=== PATIENT | male | born 1970 | race Caucasian/White ===

== ENCOUNTER 2022-10-28 12:58 | Emergency (ER) | payer BC ==
[2022-10-28 14:14] LABS: CORONAVIRUS COVID-19 NAA NEGATIVE (NEGATIVE); INFLUENZA A NAA NEGATIVE (NEGATIVE); INFLUENZA B NAA NEGATIVE (NEGATIVE); RESPIRATORY SYNCYTIAL VIR NAA NEGATIVE (NEGATIVE)
[2022-10-28 15:14] LABS: CARBON DIOXIDE,CO2 24.9 mmol/L (21.0-32.0); POTASSIUM,K 3.9 mmol/L (3.5-5.1)
== END 2022-10-28 16:54 | disposition home or self-care (01) ==
LOC: MW.ED 12:58
DX: R50.9 Fever, unspecified (principal); I10 Essential (primary) hypertension; Z20.822 Contact with and (suspected) exposure to COVID-19; Z79.899 Other long term (current) drug therapy
CPT/HCPCS: 0241U; 36415; 71045; 80053; 81001; 83605; 83735; 84443; 84484; 85025; 85652; 86308; 87040; 93005; 99284; 93010; 99283

== ENCOUNTER 2022-10-30 10:15 | Emergency (ER) | payer BC ==
[2022-10-30] MEDS ORDERED: Morphine 4 MG/ML Syringe IVPUSH ONE (10:56)
[2022-10-30] MEDS ORDERED: Acetaminophen 500 MG Tab PO ONE (10:56)
[2022-10-30] MEDS ORDERED: Sodium Chloride 0.9% 1,000 ML IV ONE (10:56)
[2022-10-30] MEDS ORDERED: Piperacillin/Tazobactam 4.5 GM in Sodium Chloride 0.9% 100 ML IV ONE (10:56)
[2022-10-30] MEDS ORDERED: Ketorolac 30 MG/ML SDV IVPUSH ONE (10:56)
[2022-10-30 11:52] LABS: CORONAVIRUS COVID-19 NAA NEGATIVE (NEGATIVE); INFLUENZA A NAA NEGATIVE (NEGATIVE); INFLUENZA B NAA NEGATIVE (NEGATIVE)
[2022-10-30 12:01] LABS: CARBON DIOXIDE,CO2 29.8 mmol/L (21.0-32.0); POTASSIUM,K 4.8 mmol/L (3.5-5.1)
== END 2022-10-30 13:29 | disposition home or self-care (01) ==
LOC: MW.ED 10:15
DX: N12 Tubulo-interstitial nephritis, not specified as acute or chronic (principal); Z20.822 Contact with and (suspected) exposure to COVID-19
CPT/HCPCS: 0240U; 36415; 71045; 74176; 80053; 81001; 83605; 83690; 83735; 84484; 85025; 85610; 85652; 85730; 86140; 87040; 87154; 96365; 96375; 99284; A9270; J1885; J2270; J2543; J7030; J7050

== ENCOUNTER 2022-10-31 13:42 | Inpatient (IN) | payer BC ==
[2022-10-31] MEDS ORDERED: Ondansetron 4 MG/2 ML SDV IVPUSH ONE (14:05)
[2022-10-31] MEDS ORDERED: Sodium Chloride 0.9% 1,000 ML IV ONE ×2 (14:05→16:00)
[2022-10-31] MEDS ORDERED: Morphine 4 MG/ML Syringe IVPUSH ONE (14:05)
[2022-10-31] MEDS ORDERED: Piperacillin/Tazobactam 3.375 GM in Sodium Chloride 0.9% 50 ML IV ONE (14:05)
[2022-10-31 15:07] LABS: CARBON DIOXIDE,CO2 28.9 mmol/L (21.0-32.0); POTASSIUM,K 4.5 mmol/L (3.5-5.1)
[2022-10-31] MEDS ORDERED: Ondansetron 4 MG/2 ML SDV IVPUSH PRN (15:32)
[2022-10-31] MEDS ORDERED: Sodium Chloride 0.9% 2.5 ML Syringe FLUSH PRN (15:32)
[2022-10-31] MEDS ORDERED: Sodium Chloride 0.9% 10 ML Syringe FLUSH PRN (15:32)
[2022-10-31] MEDS ORDERED: Ketorolac 30 MG/ML SDV IVPUSH ONE (16:00)
[2022-10-31] MEDS: Enoxaparin 40 MG/0.4 ML Syringe SUBCUT SCH (17:01)
[2022-10-31] MEDS: Piperacillin/Tazobactam 3.375 GM in Sodium Chloride 0.9% 50 ML IV SCH (19:59)
[2022-10-31] MEDS: Morphine 4 MG/ML Syringe IVPUSH PRN (20:40)
[2022-10-31] MEDS: oxyCODONE 5 MG Tab PO PRN (22:32)
[2022-10-31] MEDS: Acetaminophen 325 MG Tab PO PRN (23:58)
[2022-11-01] MEDS: Piperacillin/Tazobactam 3.375 GM in Sodium Chloride 0.9% 50 ML IV SCH ×4 (01:41→20:07)
[2022-11-01] MEDS: Morphine 4 MG/ML Syringe IVPUSH PRN ×2 (04:33→20:06)
[2022-11-01 06:19] LABS: CARBON DIOXIDE,CO2 26.6 mmol/L (21.0-32.0); POTASSIUM,K 4.4 mmol/L (3.5-5.1)
[2022-11-01] MEDS ORDERED: VANCOmycin 2 GM/400 ML 2 GM in Premix Bag 1 BAG IV ONE (06:30)
[2022-11-01] MEDS: Acetaminophen 325 MG Tab PO PRN ×2 (06:33→13:42)
[2022-11-01] MEDS: oxyCODONE 5 MG Tab PO PRN ×2 (07:21→22:29)
[2022-11-01] MEDS: Ketorolac 30 MG/ML SDV IVPUSH PRN ×2 (09:14→15:05)
[2022-11-01] MEDS: Enoxaparin 40 MG/0.4 ML Syringe SUBCUT SCH (17:00)
[2022-11-02] MEDS: Morphine 4 MG/ML Syringe IVPUSH PRN ×2 (00:18→08:49)
[2022-11-02] MEDS: Piperacillin/Tazobactam 3.375 GM in Sodium Chloride 0.9% 50 ML IV SCH ×4 (01:23→19:46)
[2022-11-02] MEDS: Acetaminophen 325 MG Tab PO PRN ×3 (01:23→19:44)
[2022-11-02] MEDS: Ketorolac 30 MG/ML SDV IVPUSH PRN (03:56)
[2022-11-02 06:16] LABS: CARBON DIOXIDE,CO2 27.9 mmol/L (21.0-32.0); POTASSIUM,K 4.4 mmol/L (3.5-5.1)
[2022-11-02] MEDS: oxyCODONE 5 MG Tab PO PRN (12:06)
[2022-11-02] MEDS: Enoxaparin 40 MG/0.4 ML Syringe SUBCUT SCH (15:37)
[2022-11-02] MEDS: Lisinopril 10 MG Tab PO SCH (20:48)
[2022-11-02] MEDS: Ibuprofen 400 MG Tab PO PRN (22:49)
[2022-11-03] MEDS: Piperacillin/Tazobactam 3.375 GM in Sodium Chloride 0.9% 50 ML IV SCH ×4 (01:55→20:00)
[2022-11-03 06:14] LABS: CARBON DIOXIDE,CO2 25.3 mmol/L (21.0-32.0); POTASSIUM,K 3.8 mmol/L (3.5-5.1)
[2022-11-03] MEDS: Ibuprofen 400 MG Tab PO PRN ×2 (07:43→16:26)
[2022-11-03] MEDS: Enoxaparin 40 MG/0.4 ML Syringe SUBCUT SCH (16:26)
[2022-11-03] MEDS: Acetaminophen 325 MG Tab PO PRN (20:00)
[2022-11-03] MEDS: Lisinopril 10 MG Tab PO SCH (20:00)
[2022-11-04] MEDS: Piperacillin/Tazobactam 3.375 GM in Sodium Chloride 0.9% 50 ML IV SCH ×2 (01:03→07:25)
[2022-11-04] MEDS: Ibuprofen 400 MG Tab PO PRN (01:59)
[2022-11-04 06:11] LABS: CARBON DIOXIDE,CO2 24.8 mmol/L (21.0-32.0); POTASSIUM,K 3.9 mmol/L (3.5-5.1)
[2022-11-04] MEDS ORDERED: VANCOmycin 1.5 GM/300 ML 1.5 GM in Premix Bag 1 BAG IV SCH (20:00)
== END 2022-11-04 13:50 | disposition home or self-care (01) | DRG 463 ==
LOC: MW.ED 13:42 → MW.MS 15:29
PROVIDERS: ADMIT Internal Medicine; ATTEND Internal Medicine
DX: N12 Tubulo-interstitial nephritis, not specified as acute or chronic (principal); R78.81 Bacteremia; I10 Essential (primary) hypertension; Z79.1 Long term (current) use of non-steroidal anti-inflammatories (NSAID); Z79.899 Other long term (current) drug therapy; Z87.442 Personal history of urinary calculi
CPT/HCPCS: 36415; 80048; 80053; 80202; 81001; 83605; 83735; 85025; 86140; 87040; 87086; 93306; 99285; A9270-GY; J1650; J1885; J2270; J2405; J2543; J3370; J7030; J7050

== ENCOUNTER 2023-01-04 16:34 | Observation (INO) | payer BC ==
[2023-01-04] MEDS ORDERED: Glucagon,Human Recombinant 1 MG Vial IVPUSH STA (16:41)
[2023-01-04] MEDS ORDERED: Sodium Chloride 0.9% 2.5 ML Syringe FLUSH PRN (16:41)
[2023-01-04] MEDS ORDERED: Sodium Chloride 0.9% 10 ML Syringe FLUSH PRN (16:41)
[2023-01-04 17:16] LABS: CARBON DIOXIDE,CO2 25.9 mmol/L (21.0-32.0); POTASSIUM,K 4.3 mmol/L (3.5-5.1)
[2023-01-04] MEDS ORDERED: Rocuronium Bromide 50 MG/5 ML Syringe ONE (18:28)
[2023-01-04] MEDS ORDERED: Ondansetron 4 MG/2 ML SDV ONE (18:28)
[2023-01-04] MEDS ORDERED: Dexamethasone 4 MG/ML 5 ML MDV ONE (18:28)
[2023-01-04] MEDS ORDERED: Succinylcholine/Sod PF 100 MG/5 ML SYRINGE IV ONE (18:28)
[2023-01-04] MEDS ORDERED: Lidocaine 2% 5 ML SDV ONE (18:28)
[2023-01-04] MEDS ORDERED: Propofol 200 MG/20 ML SDV ONE (18:29)
[2023-01-04] MEDS ORDERED: fentaNYL 100 MCG/2 ML SDV ONE (18:33)
[2023-01-04] MEDS ORDERED: Ondansetron 4 MG/2 ML SDV IVPUSH PRN (19:09)
[2023-01-04] MEDS ORDERED: HYDROmorphone 1 MG/ML Syringe ONE (19:26)
[2023-01-04] MEDS: Pantoprazole 40 MG in Sodium Chloride 0.9% 10 ML IVPUSH SCH (20:15)
[2023-01-04] MEDS ORDERED: Lidocaine 2% Viscous Solution 15 ML UD PO PRN (20:49)
[2023-01-05] MEDS: Acetaminophen 1,000 MG in Premix Bag 1 BAG IV PRN ×2 (01:33→07:33)
[2023-01-05] MEDS: Pantoprazole 40 MG in Sodium Chloride 0.9% 10 ML IVPUSH SCH (08:35)
== END 2023-01-05 14:00 | disposition home or self-care (01) ==
LOC: MW.ED 16:34 → MW.MS 18:19
PROVIDERS: ADMIT Surgery; ATTEND Surgery
DX: T18.128A Food in esophagus causing other injury, initial encounter (principal); K22.2 Esophageal obstruction; I10 Essential (primary) hypertension; Z79.899 Other long term (current) drug therapy
CPT/HCPCS: 36415; 43247; 71045; 71046; 80053; 85025; 96374; 99284; A9270; C9113; J0131; J0330; J1100; J1610; J2405; J2704; J3010; J3490; 00731; 99285